=== PATIENT | male | born 1955 | race Caucasian/White ===

== ENCOUNTER 2020-07-29 13:03 | Emergency (ER) | payer BC ==
[~2020-07-29] VITALS: Ht 175.3 cm; Wt 107.4 kg
[2020-07-29] MEDS ORDERED: TETRACAINE 0.5% OPHTH SOLN 4ML OD ONE (14:00)
[2020-07-29] MEDS ORDERED: FLUORESCEIN OPHTH 1 MG STRIP OD ONE (14:00)
[2020-07-29] MEDS ORDERED: OCUF0.25 OP (14:10)
[2020-07-29 14:40] VITALS: BP 115/61
== END 2020-07-29 14:42 | disposition home or self-care (01) ==
LOC: M ED 13:03
DX: T15.01XA Foreign body in cornea, right eye, initial encounter (principal); W31.1XXA Contact with metalworking machines, initial encounter; Y92.098 Other place in other non-institutional residence as the place of occurrence of the external cause